=== PATIENT | female | born 1990 | race African-American/Black ===

== ENCOUNTER 2018-10-01 19:46 | Emergency (ER) | payer OTHER ==
[~2018-10-01] VITALS: Ht 160 cm; Wt 124.7 kg
--- OUTSIDE RECORDS SUMMARY | 2018-10-01 19:49 | XMS REPORT | Clinical Summary ---
Author Author [facility] Address Unknown Phone Unavailable Care Team Providers Care Cuff Slitter Name Role Phone Zeynep Waldrop MD PCP Unavailable Allergies Comments Active Allergy Reactions Severity Noted Date Medroxyprogesterone Swelling 07/27/2015 Medications End Date Status Medication Sig Dispensed Refills Start Date Active ferrous sulfate 325 (65 Take 325 mg 0 FE) MG tablet by mouth daily with breakfast. Active etonogestrel-ethinyl Place 1 each 0 estradiol (NUVARING) vaginally 0.12-0.015 mg/24 hr every 28 vaginal ring days. Insert vaginally and leave in place for 3 consecutive weeks, then remove for 1 week. Active ibuprofen 200 mg Cap Take 200 mg 0 by mouth. Active Problems Not on file Social History Date Tobacco Use Types Packs/Day Years Used Never Smoker Smokeless Tobacco: Never Used Alcohol Use Drinks/Week oz/Week Comments Yes social Sex Assigned at Date Recorded Not on file Industry Job Start Date Occupation Not on file Not on file Not on file Travel End Travel History Travel Start No recent travel history available. Last Filed Vital Signs Not on file Plan of Treatment Not on file Results Not on fileafter 09/30/2017 Insurance Payer Benefit Subscriber ID Type Phone Address Plan / Group AETNA - [employer] CARE AETNA OPEN xxxxxxxxxx HMO/POS ACCESS HMO NAP (Work)
--- OUTSIDE RECORDS SUMMARY | 2018-10-01 19:49 | XMS REPORT | Clinical Summary ---
Author Author [facility] Address Unknown Phone Unavailable Care Team Providers Care News Internship Name Role Phone Abhilash Elmore MD PCP Allergies Comments Active Allergy Reactions Severity Noted Date "Swelling of Hands & Feet" Medroxyprogesterone Swelling Medium 07/20/2016 Medications End Date Status Medication Sig Dispensed Refills Start Date Active pravastatin (PRAVACHOL) TK 1 T PO D 1 20 MG tablet 8 Active metFORMIN XR TK 1 T PO TID 3 (GLUCOPHAGE-XR) 500 mg 24 8 hr tablet Active VIORELE, 28, 0.15-0.02 TK 1 T PO QD 5 mgx21 /0.01 mg x 5 per 8 tablet Active CHOLECALCIFEROL, VITAMIN Take by 0 D3, ORAL mouth. 04/21/2019 Active fluticasone (FLONASE) 50 2 sprays (100 16 g 2 mcg/actuation nasal spray mcg total) by 8 Each Nare route daily. 12/29/2017 Discontinued acetaminophen-codeine 0 (TYLENOL WITH CODEINE #3) 7 300-30 mg per tablet 12/29/2017 Discontinued amoxicillin-pot 0 clavulanate (AUGMENTIN) 7 875-125 mg per tablet 12/29/2017 Discontinued methylPREDNISolone 0 (MEDROL DOSEPAK) 4 mg 7 tablet 12/29/2017 Discontinued ondansetron ODT 0 (ZOFRAN-ODT) 4 MG 7 disintegrating tablet 01/04/2018 predniSONE (DELTASONE) 20 Take 2 tab x 10 tablet 0 mg tablet 3 days and 8 then 1 tab daily x 4 days 04/21/2018 Discontinued albuterol (PROAIR HFA) 90 Inhale 2 18 g 1 mcg/actuation inhaler puffs every 6 8 (six) hours as needed for wheezing. 05/01/2018 amoxicillin-pot Take 1 tablet 20 tablet 0 clavulanate (AUGMENTIN) by mouth 2 8 875-125 mg per tablet (two) times a day for 10 days. Active Problems Problem Noted Date Morbid obesity with BMI of 50.0-59.9, adult 05/30/2017 Diverticulitis of both large and small intestine with abscess without 10/18/2016 bleeding Diverticulitis of large intestine 07/20/2016 Encounters Care Team Description Date Type Specialty Jordi Wu MD Generalized abdominal pain (Primary Dx) 07/31/2018 Transcribe Access Orders Abhilash Elmore MD Acute pansinusitis, recurrence not specified (Primary Dx) 04/21/2018 Office Visit Internal Medicine Abhilash Elmore MD Bronchospasm (Primary Dx); Viral illness 12/29/2017 Office Visit Internal Medicine after 09/30/2017 Family History Medical History Relation Name Comments Colon cancer Maternal Grandfather Liver cancer Maternal Grandfather Hypertension Maternal Grandmother Kidney disease Maternal Grandmother Diabetes Mother Uterine cancer Mother Seizures Sister Relation Name Status Comments Father Alive Maternal Grandfather Alive Maternal Grandmother Alive Mother Alive Paternal Grandmother Alive Sister Alive Social History Date Tobacco Use Types Packs/Day Years Used Never Smoker Alcohol Use Drinks/Week oz/Week Comments Yes ocassional Sex Assigned at Date Recorded Not on file Industry Job Start Date Occupation Not on file Not on file Not on file Travel End Travel History Travel Start No recent travel history available. Last Filed Vital Signs Time Taken Vital Sign Reading 04/21/2018 8:08 AM CDT Blood Pressure 130/80 04/21/2018 8:08 AM CDT Pulse 69 04/21/2018 8:08 AM CDT Temperature 36.7 C (98 F) 04/21/2018 8:08 AM CDT Respiratory Rate 20 04/21/2018 8:08 AM CDT Oxygen Saturation 100% - Inhaled Oxygen - Concentration 04/21/2018 8:08 AM CDT Weight 133 kg (294 lb) 04/21/2018 8:08 AM CDT Height 160 cm (5' 3") 04/21/2018 8:08 AM CDT Body Mass Index 52.08 Plan of Treatment Health Maintenance Due Date Last Done Comments CERVICAL CANCER SCREENING 10/14/2020 10/14/2017 INFLUENZA VACCINE 12/30/2023 08/14/2003 Postponed from 05/31/2018 (Patient Refused) HEPATITIS B VACCINES Aged Out No longer eligible based on patient's age to complete this topic IPV VACCINES Aged Out No longer eligible based on patient's age to complete this topic MENINGOCOCCAL VACCINE Aged Out No longer eligible based on patient's age to complete this topic Implants Device Identifier Shelf Expiration Date Model / Serial / Lot Implanted Type Area Manufactur er 07/01/2021 APS [id number] / / [id number] Allograft Amniofix Membrane Human N/A: N/A MIMEDX Amniotic 6 X 16cm - [id number] Implanted: Qty: 1 on 10/18/2016 by Implants Jordi Wu MD Results Not on fileafter 09/30/2017 Insurance Payer Benefit Subscriber ID Type Phone Address Plan / Group AETNA AETNA xxxxxxxxxx HMO HMO,POS,EP O, [facility] Advance Directives Patient has advance care planning documents, and code status on file. For more i nformation, please contact: [facility] [address] [place] [address] Date Inactivated Comments Code Status Date Activated 07/29/2016 3:11 PM Full Code 07/20/2016 8:31 PM Code Status decision reached by: Patient
--- OUTSIDE RECORDS SUMMARY | 2018-10-01 19:49 | XMS REPORT ---
Author Author [facility] Address Unknown Phone Unavailable Care Team Providers Care Marketing And Development Coordinator Name Role Phone Unavailable Unavailable Problems This patient has no known problems. Allergies, Adverse Reactions, Alerts This patient has no known allergies or adverse reactions. Medications This patient has no known medications. Results Test Description Test Time Test Comments Text Results Atomic Results Result Comments RAD, CHEST, PA OR AP, 1 VIEW 2017-07-31 20:58:00 Reason for exam:->chest pain, coughIs the patient ?->UnknownShould this be performed at the bedside?->No FINAL REPORT INDICATION: chest pain, cough COMPARISON: August 14, 2012 TECHNIQUE: Single frontal view of the chest. FINDINGS: Lungs and pleura: Clear lungs. No effusion.Heart and mediastinum: Normal heart size. Unremarkable mediastinal contours.Osseous structures: No acute abnormality.Other: None. IMPRESSION: No acute intrathoracic abnormality. Signed: JR Nicole Robert MDReport Verified Date/Time: 07/31/2017 20:58:06 Reading Location: [facility] B1 [id number] [facility] Reading Room
[2018-10-01] MEDS ORDERED: HYDROCODONE/APAP 5MG-325MG TAB PO ONE (20:15)
--- NOTE | 2018-10-01 20:45 | Diagnostic Imaging Report ---
Examination: 3 views of the right foot Indication: Tripped over a branch, left dorsal region of foot pain Comparison: None Findings: No fracture, lytic or blastic lesions. Normal appearance of the soft tissues and joints. Impression: No evidence of an acute right foot fracture. Signed by: Dr. Yaz Ho M.D. on 10/01/2018 8:42 PM
== END 2018-10-01 21:28 | disposition home or self-care (01) ==
LOC: FSED 19:46
DX: S93.611A Sprain of tarsal ligament of right foot, initial encounter (principal); W18.39XA Other fall on same level, initial encounter; Y93.02 Activity, running; Y92.830 Public park as the place of occurrence of the external cause
CPT/HCPCS: 99283